=== PATIENT | female | born 1995 | race Caucasian/White ===

== ENCOUNTER 2019-04-10 19:55 | Inpatient (IN) | payer SELFPAY ==
[~2019-04-10] VITALS: Ht 180.3 cm; Wt 121.1 kg
[~2019-04-10 19:55] MED LIST: CLIN150C14 PO; ONDA4TAB10 PO; ONDA4TAB7 PO
[2019-04-10 20:25] LABS: BILIRUBIN,URINE NEGATIVE (NEG); CLARITY,URINE CLOUDY; COLOR,URINE YELLOW; NITRITE,URINE NEGATIVE (NEG); PH,URINE 6.5; PROTEIN,URINE NEGATIVE (NEG-TRACE); UROBILINOGEN,URINE 0.2 mg/dL (0.2 mg/dL)
[2019-04-10] MEDS ORDERED: fentaNYL PF VIAL 100 MCG/2 ML VIAL ONE (20:27)
[2019-04-10] MEDS ORDERED: ONDANSETRON PF 4 MG/2 ML VIAL. ONE (20:27)
[2019-04-10] MEDS ORDERED: IV NORMAL SALINE 1000ML BAG 1,000 ML IV ONE (20:30)
[2019-04-10] MEDS ORDERED: fentaNYL PF VIAL 100 MCG/2 ML VIAL IV ONE (20:30)
[2019-04-10] MEDS ORDERED: ONDANSETRON PF 4 MG/2 ML VIAL. IV ONE (20:30)
[2019-04-10 20:31] LABS: BASO # 0.1 x10^3/uL (0.0-0.2); BASO % 1 % (0-3); EOS # 0.2 x10^3/uL (0.0-0.7); EOS % 3 % (0-3); HEMATOCRIT 40.7 % (36.0-47.0); HEMOGLOBIN 13.7 g/dL (12.0-15.5); LYMPH % 22 % (24-48); MEAN CORPUSCULAR HEMOGLOBIN 30 pg (25-35); MEAN CORPUSCULAR HGB CONC 34 g/dL (31-37); MEAN CORPUSCULAR VOLUME 89 fL (79-100); MONO # 0.6 x10^3/uL (0.0-1.1); MONO % 7 % (0-9); NEUT # 6.3 x10^3/uL (1.8-7.7); NEUT % 69 % (31-73); PLATELET COUNT 238 x10^3/uL (140-400); RED CELL DISTRIBUTION WIDTH 13.9 % (11.5-14.5); WHITE BLOOD COUNT 9.1 x10^3/uL (4.0-11.0)
[2019-04-10 20:35] LABS: AMORPHOUS SEDIMENT,UR PRESENT /HPF; BACTERIA,URINE MODERATE /HPF (0-FEW); SQUAMOUS EPITHELIAL CELL,UR MOD /LPF; TRICHOMONAS,URINE PRESENT
--- NOTE | 2019-04-10 20:41 | PHYS DOC ---
Past Medical History Past Medical History: Anemia, Anxiety, Asthma, Depression, Hypertension, Seizure Past Surgical History: Other Additional Past Surgical Histo: MOUTH AND BACK, RIGHT KNEE Alcohol Use: None Drug Use: None Adult General Chief Complaint Chief Complaint: ABDOMINAL PAIN HPI HPI Patient is a 24 year old f p/w abdo pain ruq since six am fever 101 mom concerned about gb dull constant sharp worsened with time radiates to flank no prior surgeries hx of epilepsy not on any meds Review of Systems Review of Systems Constitutional: Eyes: Denies change in visual acuity, redness, or eye pain [] HENT: Denies nasal congestion or sore throat [] Respiratory: Denies cough or shortness of breath [] Cardiovascular: No additional information not addressed in HPI [] GI: Musculoskeletal: Denies back pain or joint pain [] Integument: Denies rash or skin lesions [] Neurologic: Denies headache, focal weakness or sensory changes [] All other systems were reviewed and found to be within normal limits, except as documented in this note. Current Medications Current Medications Current Medications Medications (Trade) Dose Ordered Sig/Karol Start Time Stop Time Status Last Admin Dose Admin Ciprofloxacin/ Dextrose 200 ml @ 200 mls/hr 1X ONCE 04/10/19 22:15 04/10/19 23:14 Fentanyl Citrate (Fentanyl 2ml Vial) 100 mcg STK-MED ONCE 04/10/19 20:27 04/10/19 20:28 DC Metronidazole 100 ml @ 100 mls/hr 1X ONCE 04/10/19 22:15 04/10/19 23:14 UNV Morphine Sulfate (Morphine Sulfate) 4 mg PRN Q2HR PRN 04/10/19 22:15 04/11/19 22:14 UNV Ondansetron HCl (Zofran) 4 mg PRN Q8HRS PRN 04/10/19 22:15 04/11/19 22:14 Sodium Chloride 1,000 ml @ 100 mls/hr Q10H 04/10/19 22:15 04/11/19 22:14 Allergies Allergies Allergies Coded Allergies Type Severity Reaction Last Updated Verified Penicillins Allergy Severe 04/10/19 Yes Physical Exam Physical Exam Constitutional: Well developed, well nourished, no acute distress, non-toxic appearance. [] HENT: Normocephalic, atraumatic, bilateral external ears normal, oropharynx moist, no oral exudates, nose normal. [] Eyes: PERRLA, EOMI, conjunctiva normal, no discharge. [] Neck: Normal range of motion, no tenderness, supple, no stridor. [] Cardiovascular:Heart rate regular rhythm, no murmur [] Lungs & Thorax: Bilateral breath sounds clear to auscultation [] Abdomen: Bowel sounds normal, soft, ruq tenderness, no masses, no pulsatile masses. [] Skin: Warm, dry, no erythema, no rash. [] Back: No tenderness, no CVA tenderness. [] Extremities: No tenderness, no cyanosis, no clubbing, ROM intact, no edema. [] Neurologic: Alert and oriented X 3, normal motor function, normal sensory function, no focal deficits noted. [] Psychologic: Affect normal, judgement normal, mood normal. [] Current Patient Data Vital Signs Vital Signs Date Time Temp Pulse Resp B/P (MAP) Pulse Ox O2 Delivery O2 Flow Rate FiO2 04/10/19 21:08 79 16 116/64 (81) 99 Room Air 04/10/19 20:00 97.7 97.7 Lab Values Laboratory Tests Test 04/10/19 20:00 04/10/19 20:11 04/10/19 20:22 Urine Collection Type Unknown Urine Color Yellow Urine Clarity Cloudy Urine pH 6.5 Urine Specific [place] 1.025 Urine Protein Negative mg/dL (NEG-TRACE) Urine Glucose (UA) Negative mg/dL (NEG) Urine Ketones (Stick) Negative mg/dL (NEG) Urine Blood Negative (NEG) Urine Nitrite Negative (NEG) Urine Bilirubin Negative (NEG) Urine Urobilinogen Dipstick 0.2 mg/dL (0.2 mg/dL) Urine Leukocyte Esterase Moderate (NEG) Urine RBC 1-2 /HPF (0-2) Urine WBC 5-10 /HPF (0-4) Urine Squamous Epithelial Cells Mod /LPF Urine Amorphous Sediment Present /HPF Urine Bacteria Moderate /HPF (0-FEW) Urine Trichomonas Present POC Urine HCG, Qualitative Hcg negative (Negative) White Blood Count 9.1 x10^3/uL (4.0-11.0) Red Blood Count 4.60 x10^6/uL (3.50-5.40) Hemoglobin 13.7 g/dL (12.0-15.5) Hematocrit 40.7 % (36.0-47.0) Mean Corpuscular Volume 89 fL (79-100) Mean Corpuscular Hemoglobin 30 pg (25-35) Mean Corpuscular Hemoglobin Concent 34 g/dL (31-37) Red Cell Distribution Width 13.9 % (11.5-14.5) Platelet Count 238 x10^3/uL (140-400) Neutrophils (%) (Auto) 69 % (31-73) Lymphocytes (%) (Auto) 22 % (24-48) L Monocytes (%) (Auto) 7 % (0-9) Eosinophils (%) (Auto) 3 % (0-3) Basophils (%) (Auto) 1 % (0-3) Neutrophils # (Auto) 6.3 x10^3/uL (1.8-7.7) Lymphocytes # (Auto) 2.0 x10^3/uL (1.0-4.8) Monocytes # (Auto) 0.6 x10^3/uL (0.0-1.1) Eosinophils # (Auto) 0.2 x10^3/uL (0.0-0.7) Basophils # (Auto) 0.1 x10^3/uL (0.0-0.2) Sodium Level 141 mmol/L (136-145) Potassium Level 4.0 mmol/L (3.5-5.1) Chloride Level 105 mmol/L (98-107) Carbon Dioxide Level 27 mmol/L (21-32) Anion Gap 9 (6-14) Blood Urea Nitrogen 16 mg/dL (7-20) Creatinine 0.9 mg/dL (0.6-1.0) Estimated GFR (Cockcroft-Gault) 78.3 BUN/Creatinine Ratio 18 (6-20) Glucose Level 141 mg/dL (70-99) H Calcium Level 9.3 mg/dL (8.5-10.1) Total Bilirubin 0.2 mg/dL (0.2-1.0) Aspartate Amino Transferase (AST) 12 U/L (15-37) L Alanine Aminotransferase (ALT) 14 U/L (14-59) Alkaline Phosphatase 75 U/L (46-116) Total Protein 7.8 g/dL (6.4-8.2) Albumin 3.9 g/dL (3.4-5.0) Albumin/Globulin Ratio 1.0 (1.0-1.7) Lipase 129 U/L (73-393) Laboratory Tests 04/10/19 20:22 Laboratory Tests 04/10/19 20:22 EKG EKG [] Radiology/Procedures Radiology/Procedures [] Impressions: MPRESSION: 1. Cholelithiasis. Examination is positive for ultrasonographic evidence of Butt's sign. The gallbladder wall thickness is upper limits of normal. Cholecystitis is not completely excluded but no evidence of pericholecystic fluid identified. Correlate clinically. 2. Hepatic steatosis with mild hepatomegaly. 2. The common bile duct measures 6 mm in diameter is upper limits of normal. . Correlate with lab values. Electronically signed by: Jonathan Lennon MD (04/10/2019 9:47 PM) [facility] Course & Med Decision Making Course & Med Decision Making Pertinent Labs and Imaging studies reviewed. (See chart for details) []SUSPECT EARLY CHOLECYSTITIS STILL HAVING PAIN AFTER FENTANYL BORDERLINE U/S CONSULT WTIH HARRY ADMIT FULBRIGHT CIPRO/FLAGYL (PT DESCRIBES SOB WITH PCN) THERE IS NO RLQ TTP AT ALL ON TWO EXAMS IN ED Dragon Disclaimer Dragon Disclaimer This electronic medical record was generated, in whole or in part, using a voice recognition dictation system. Departure Departure Impression: Primary Impression: Abdominal pain Disposition: ADMITTED INPATIENT Admitting Physician: ZACKERY Referrals: NO PCP (PCP) MARY ELLEN KNOX MD Apr 10, 2019 20:41
[2019-04-10 20:42] LABS: CALCIUM 9.3 mg/dL (8.5-10.1); CREATININE 0.9 mg/dL (0.6-1.0); GFR 78.3
[2019-04-10 20:47] LABS: ALBUMIN 3.9 g/dL (3.4-5.0); TOTAL BILIRUBIN 0.2 mg/dL (0.2-1.0); TOTAL PROTEIN 7.8 g/dL (6.4-8.2)
--- NOTE | 2019-04-10 21:50 | RAD ---
Examination: Ultrasound abdomen limited HISTORY: History of right upper quadrant pain, fever COMPARISON: 05/04/2015 FINDINGS: The pancreas is not well-visualized. The echogenicity liver grossly demonstrates mild increased echogenicity. The common bile duct measures 6 mm in diameter. The right lobe of the liver measures 18.3 cm. The right kidney measures 11.3 cm in length. Few echogenicities identified within the gallbladder likely cholelithiasis. Examination is positive for ultrasonographic evidence of Butt's sign. The gallbladder wall thickness measures 3 mm. The IVC is within normal limits of dimension. IMPRESSION: 1. Cholelithiasis. Examination is positive for ultrasonographic evidence of Butt's sign. The gallbladder wall thickness is upper limits of normal. Cholecystitis is not completely excluded but no evidence of pericholecystic fluid identified. Correlate clinically. 2. Hepatic steatosis with mild hepatomegaly. 2. The common bile duct measures 6 mm in diameter is upper limits of normal. . Correlate with lab values. Electronically signed by: Jonathan Lennon MD (04/10/2019 9:47 PM) [facility]
[2019-04-10] MEDS ORDERED: ONDANSETRON PF 4 MG/2 ML VIAL. IV PRN (22:15)
[2019-04-10] MEDS ORDERED: CIPROFLOXACIN 400MG PREMIX 200 ML IV ONE (22:15)
[2019-04-10] MEDS: MORPHINE SULFATE 4 MG/ML VIAL. IV PRN (23:05)
[2019-04-11] VITALS: BP 115/77
[2019-04-11] MEDS: IV NORMAL SALINE 1000ML BAG 1,000 ML IV SCH ×2 (00:42→08:15)
[2019-04-11] MEDS ORDERED: NICOTINE 21MG PATCH. TD SCH (01:30)
[2019-04-11 03:29] VITALS: BP 128/72
[2019-04-11 07:00] VITALS: BP 111/75
[2019-04-11] MEDS: MORPHINE SULFATE 4 MG/ML VIAL. IV PRN ×2 (07:34→13:02)
[2019-04-11] MEDS ORDERED: BUPIVACAINE MPF 0.5% 30 ML VIAL. ONE (07:46)
[2019-04-11] MEDS ORDERED: IOHEXOL 300 MG/ML 50 ML VIAL. ONE (07:46)
[2019-04-11] MEDS ORDERED: SURGICEL HEMOSTAT 4X8 EACH. ONE (07:46)
[2019-04-11] MEDS ORDERED: IV RINGERS,LACTATED 1000ML 1,000 ML IV SCH (07:50)
[2019-04-11] MEDS ORDERED: MORPHINE SULFATE 2 MG/ML VIAL. IV PRN (08:00)
[2019-04-11] MEDS ORDERED: HYDROmorphone 2 MG/ML VIAL IV PRN (08:00)
[2019-04-11] MEDS ORDERED: ONDANSETRON PF 4 MG/2 ML VIAL. IV PRN ×2 (08:00→13:00)
[2019-04-11] MEDS ORDERED: fentaNYL PF VIAL 100 MCG/2 ML VIAL IV PRN (08:00)
--- NOTE | 2019-04-11 08:19 | PDOC2 ---
CONSULT Date of Consult Date of Consult DATE: 04/11/19 TIME: 08:15 History of Present Illness Reason for Visit: The patient is a 24 year old female who reported to the ER with abdominal pain. The pain was initially in the mid abdomen but then worsened and localized to the RUQ and back. The pain began yesterday and was sharp and severe. She had associated nausea and reports a temperature of 101. She had a similar episode of this pain a few months back and was seen in [facility]. Her evaluation here is consistent with cholecystitis. Past Medical History Past Medical History seizures, ADD, depression, obesity Past Surgical History Past Surgical History dental surgery, D and C Social History 1 pack per day ALCOHOL: rare Current Problem List Problem List Problems Medical Problems: (1) Abdominal pain Status: Acute Current Medications Current Medications Current Medications Sodium Chloride 1,000 ml @ 1,000 mls/hr 1X ONCE IV Last administered on 04/10/19at 20:30; Start 04/10/19 at 20:30; Stop 04/10/19 at 21:29; Status DC Fentanyl Citrate (Fentanyl 2ml Vial) 50 mcg 1X ONCE IV Last administered on 04/10/19at 20:30; Start 04/10/19 at 20:30; Stop 04/10/19 at 20:31; Status DC Ondansetron HCl (Zofran) 4 mg 1X ONCE IV Last administered on 04/10/19at 20:30; Start 04/10/19 at 20:30; Stop 04/10/19 at 20:31; Status DC Ondansetron HCl (Zofran) 4 mg STK-MED ONCE .ROUTE ; Start 04/10/19 at 20:27; Stop 04/10/19 at 20:27; Status DC Fentanyl Citrate (Fentanyl 2ml Vial) 100 mcg STK-MED ONCE .ROUTE ; Start 04/10/19 at 20:27; Stop 04/10/19 at 20:28; Status DC Ondansetron HCl (Zofran) 4 mg PRN Q8HRS PRN IV NAUSEA/VOMITING Last administered on 04/11/19at 07:38; Start 04/10/19 at 22:15; Stop 04/11/19 at 22:14 Morphine Sulfate (Morphine Sulfate) 4 mg PRN Q2HR PRN IV PAIN Last administered on 04/11/19at 07:38; Start 04/10/19 at 22:15; Stop 04/11/19 at 22:14 Sodium Chloride 1,000 ml @ 100 mls/hr Q10H IV Last administered on 04/11/19at 00:42; Start 04/10/19 at 22:15; Stop 04/11/19 at 22:14 Ciprofloxacin/ Dextrose 200 ml @ 200 mls/hr 1X ONCE IV Last administered on 04/10/19at 23:50; Start 04/10/19 at 22:15; Stop 04/10/19 at 23:14; Status DC Metronidazole 100 ml @ 100 mls/hr 1X ONCE IV Last administered on 04/11/19at 00:42; Start 04/10/19 at 22:15; Stop 04/10/19 at 23:14; Status DC Nicotine (Nicoderm Cq 21mg) 1 patch DAILY TD Last administered on 04/11/19at 01:39; Start 04/11/19 at 01:30 Lorazepam (Ativan Inj) 1 mg PRN Q6HRS PRN IV ANXIETY / AGITATION Last administered on 04/11/19at 01:39; Start 04/11/19 at 01:30 Iohexol (Omnipaque 300 Mg/ml) 50 ml STK-MED ONCE .ROUTE ; Start 04/11/19 at 07:46; Stop 04/11/19 at 07:46; Status DC Cellulose (Surgicel Hemostat 4x8) 1 each STK-MED ONCE .ROUTE ; Start 04/11/19 at 07:46; Stop 04/11/19 at 07:46; Status DC Bupivacaine HCl (Sensorcaine Mpf 0.5%) 30 ml STK-MED ONCE .ROUTE ; Start 04/11/19 at 07:46; Stop 04/11/19 at 07:46; Status DC Ondansetron HCl (Zofran) 4 mg PRN Q6HRS PRN IV NAUSEA/VOMITING; Start 04/11/19 at 08:00; Stop 04/11/19 at 18:00 Fentanyl Citrate (Fentanyl 2ml Vial) 25 mcg PRN Q5MIN PRN IV MILD PAIN 1-3; Start 04/11/19 at 08:00; Stop 04/11/19 at 18:00 Fentanyl Citrate (Fentanyl 2ml Vial) 50 mcg PRN Q5MIN PRN IV MODERATE TO SEVERE PAIN; Start 04/11/19 at 08:00; Stop 04/11/19 at 18:00 Morphine Sulfate (Morphine Sulfate) 1 mg PRN Q10MIN PRN IV SEVERE PAIN 7-10; Start 04/11/19 at 08:00; Stop 04/11/19 at 18:00 Ringer's Solution 1,000 ml @ 30 mls/hr Q24H IV ; Start 04/11/19 at 07:50; Stop 04/11/19 at 19:49 Hydromorphone HCl (Dilaudid) 0.5 mg PRN Q10MIN PRN IV SEV PAIN, Second choice; Start 04/11/19 at 08:00; Stop 04/11/19 at 18:00 Prochlorperazine Edisylate (Compazine) 5 mg PACU PRN PRN IV NAUSEA, MRX1; Start 04/11/19 at 08:00; Stop 04/11/19 at 18:00 Active Scripts Active Zofran (Ondansetron Hcl) 4 Mg Tablet 1 Tab PO Q6HRS Zofran Odt (Ondansetron) 4 Mg Tab.rapdis 4 Mg PO Q8HRS PRN Clindamycin Hcl 150 Mg Capsule 300 Mg PO QID 10 Days Allergies Allergies: Coded Allergies: Penicillins (Verified Allergy, Severe, 04/10/19) difficulty breathing ROS General: YES: Other (fever) PSYCHOLOGICAL ROS: YES: Anxiety Eyes: No Blurry vision, No Decreased vision, No Double vision, No Dry eyes, No Excessive tearing, No Eye Pain, No Itchy Eyes, No Loss of vision, No Photophobia, No Scotomata, No Uses contacts, No Uses glasses, No Other HEENT: No: Heacaches, Visual Changes, Hearing change, Nasal congestion, Nasal discharge, Oral lesions, Sinus pain, Sore Throat, Epistaxis, Sneezing, Snoring, Tinnitus, Vertigo, Vocal changes, Other ALLERGY AND IMMUNOLOGY: No: Hives, Insect Bite Sensitivity, Itchy/Watery Eyes, Nasal Congestion, Post Nasal Drip, Seasonal Allergies, Other Hematological and Lymphatic: No: Bleeding Problems, Blood Clots, Blood Transfusions, Brusing, Night Sweats, Pallor, Swollen Lymph Nodes, Other ENDOCRINE: No: Breast Changes, Galactorrhea, Hair Pattern Changes, Hot Flashes, Malaise/lethargy, Mood Swings, Palpitations, Polydipsia/polyuria, Skin Changes, Temperature Intolerance, Unexpected Weight Changes, Other Respiratory: No: Cough, Hemoptysis, Orthopnea, Pleuritic Pain, Shortness of breath, SOB with excertion, Sputum Changes, Stridor, Tachypnea, Wheezing, Other Cardiovascular: No Chest Pain, No Palpitations, No Orthopnea, No Paroxysmal Noc. Dyspnea, No Edema, No Lt Headedness, No Other Gastrointestinal: Yes Nausea, Yes Abdominal Pain Genitourinary: No Dysuria, No Frequency, No Incontinence, No Hematuria, No Retention, No Discharge, No Urgency, No Pain, No Flank Pain, No Other, No , No , No , No , No , No , No Musculoskeletal: No Gait Disturbance, No Joint Pain, No Joint Stiffness, No Joint Swelling, No Muscle Pain, No Muscular Weakness, No Pain In:, No Swelling In:, No Other Neurological: No Behavorial Changes, No Bowel/Bladder ControlChng, No Confusion, No Dizziness, No Gait Disturbance, No Headaches, No Impaired Coord/balance, No Memory Loss, No Numbness/Tingling, No Seizures, No Speech Problems, No Tremors, No Visual Changes, No Weakness, No Other Skin: No Dry Skin, No Eczema, No Hair Changes, No Lumps, No Mole Changes, No Mottling, No Nail Changes, No Pruritus, No Rash, No Skin Lesion Changes, No Other, No Acne Physical Exam General: Alert, Oriented X3, Cooperative HEENT: Atraumatic Lungs: Clear to auscultation Abdomen: Soft (obese, tender with palpation in RUQ) Extremities: No clubbing, No cyanosis Skin: No rashes, No breakdown Neuro: Normal speech Psych/Mental Status: Mental status NL Vitals VITALS Vital Signs Date Time Temp Pulse Resp B/P (MAP) Pulse Ox O2 Delivery O2 Flow Rate FiO2 04/11/19 07:38 Room Air 04/11/19 03:29 98.3 72 20 128/72 (90) 99 98.3 Labs Labs Laboratory Tests Test 04/10/19 20:00 04/10/19 20:11 04/10/19 20:22 Urine Collection Type Unknown Urine Color Yellow Urine Clarity Cloudy Urine pH 6.5 Urine Specific [place] 1.025 Urine Protein Negative mg/dL (NEG-TRACE) Urine Glucose (UA) Negative mg/dL (NEG) Urine Ketones (Stick) Negative mg/dL (NEG) Urine Blood Negative (NEG) Urine Nitrite Negative (NEG) Urine Bilirubin Negative (NEG) Urine Urobilinogen Dipstick 0.2 mg/dL (0.2 mg/dL) Urine Leukocyte Esterase Moderate (NEG) Urine RBC 1-2 /HPF (0-2) Urine WBC 5-10 /HPF (0-4) Urine Squamous Epithelial Cells Mod /LPF Urine Amorphous Sediment Present /HPF Urine Bacteria Moderate /HPF (0-FEW) Urine Trichomonas Present Bedside Urine HCG, Qualitative Hcg negative (Negative) White Blood Count 9.1 x10^3/uL (4.0-11.0) Red Blood Count 4.60 x10^6/uL (3.50-5.40) Hemoglobin 13.7 g/dL (12.0-15.5) Hematocrit 40.7 % (36.0-47.0) Mean Corpuscular Volume 89 fL (79-100) Mean Corpuscular Hemoglobin 30 pg (25-35) Mean Corpuscular Hemoglobin Concent 34 g/dL (31-37) Red Cell Distribution Width 13.9 % (11.5-14.5) Platelet Count 238 x10^3/uL (140-400) Neutrophils (%) (Auto) 69 % (31-73) Lymphocytes (%) (Auto) 22 % (24-48) Monocytes (%) (Auto) 7 % (0-9) Eosinophils (%) (Auto) 3 % (0-3) Basophils (%) (Auto) 1 % (0-3) Neutrophils # (Auto) 6.3 x10^3/uL (1.8-7.7) Lymphocytes # (Auto) 2.0 x10^3/uL (1.0-4.8) Monocytes # (Auto) 0.6 x10^3/uL (0.0-1.1) Eosinophils # (Auto) 0.2 x10^3/uL (0.0-0.7) Basophils # (Auto) 0.1 x10^3/uL (0.0-0.2) Sodium Level 141 mmol/L (136-145) Potassium Level 4.0 mmol/L (3.5-5.1) Chloride Level 105 mmol/L (98-107) Carbon Dioxide Level 27 mmol/L (21-32) Anion Gap 9 (6-14) Blood Urea Nitrogen 16 mg/dL (7-20) Creatinine 0.9 mg/dL (0.6-1.0) Estimated GFR (Cockcroft-Gault) 78.3 BUN/Creatinine Ratio 18 (6-20) Glucose Level 141 mg/dL (70-99) Calcium Level 9.3 mg/dL (8.5-10.1) Total Bilirubin 0.2 mg/dL (0.2-1.0) Aspartate Amino Transf (AST/SGOT) 12 U/L (15-37) Alanine Aminotransferase (ALT/SGPT) 14 U/L (14-59) Alkaline Phosphatase 75 U/L (46-116) Total Protein 7.8 g/dL (6.4-8.2) Albumin 3.9 g/dL (3.4-5.0) Albumin/Globulin Ratio 1.0 (1.0-1.7) Lipase 129 U/L (73-393) Laboratory Tests Test 04/10/19 20:00 04/10/19 20:11 04/10/19 20:22 Urine Collection Type Unknown Urine Color Yellow Urine Clarity Cloudy Urine pH 6.5 Urine Specific [place] 1.025 Urine Protein Negative mg/dL (NEG-TRACE) Urine Glucose (UA) Negative mg/dL (NEG) Urine Ketones (Stick) Negative mg/dL (NEG) Urine Blood Negative (NEG) Urine Nitrite Negative (NEG) Urine Bilirubin Negative (NEG) Urine Urobilinogen Dipstick 0.2 mg/dL (0.2 mg/dL) Urine Leukocyte Esterase Moderate (NEG) Urine RBC 1-2 /HPF (0-2) Urine WBC 5-10 /HPF (0-4) Urine Squamous Epithelial Cells Mod /LPF Urine Amorphous Sediment Present /HPF Urine Bacteria Moderate /HPF (0-FEW) Urine Trichomonas Present Bedside Urine HCG, Qualitative Hcg negative (Negative) White Blood Count 9.1 x10^3/uL (4.0-11.0) Red Blood Count 4.60 x10^6/uL (3.50-5.40) Hemoglobin 13.7 g/dL (12.0-15.5) Hematocrit 40.7 % (36.0-47.0) Mean Corpuscular Volume 89 fL (79-100) Mean Corpuscular Hemoglobin 30 pg (25-35) Mean Corpuscular Hemoglobin Concent 34 g/dL (31-37) Red Cell Distribution Width 13.9 % (11.5-14.5) Platelet Count 238 x10^3/uL (140-400) Neutrophils (%) (Auto) 69 % (31-73) Lymphocytes (%) (Auto) 22 % (24-48) Monocytes (%) (Auto) 7 % (0-9) Eosinophils (%) (Auto) 3 % (0-3) Basophils (%) (Auto) 1 % (0-3) Neutrophils # (Auto) 6.3 x10^3/uL (1.8-7.7) Lymphocytes # (Auto) 2.0 x10^3/uL (1.0-4.8) Monocytes # (Auto) 0.6 x10^3/uL (0.0-1.1) Eosinophils # (Auto) 0.2 x10^3/uL (0.0-0.7) Basophils # (Auto) 0.1 x10^3/uL (0.0-0.2) Sodium Level 141 mmol/L (136-145) Potassium Level 4.0 mmol/L (3.5-5.1) Chloride Level 105 mmol/L (98-107) Carbon Dioxide Level 27 mmol/L (21-32) Anion Gap 9 (6-14) Blood Urea Nitrogen 16 mg/dL (7-20) Creatinine 0.9 mg/dL (0.6-1.0) Estimated GFR (Cockcroft-Gault) 78.3 BUN/Creatinine Ratio 18 (6-20) Glucose Level 141 mg/dL (70-99) Calcium Level 9.3 mg/dL (8.5-10.1) Total Bilirubin 0.2 mg/dL (0.2-1.0) Aspartate Amino Transf (AST/SGOT) 12 U/L (15-37) Alanine Aminotransferase (ALT/SGPT) 14 U/L (14-59) Alkaline Phosphatase 75 U/L (46-116) Total Protein 7.8 g/dL (6.4-8.2) Albumin 3.9 g/dL (3.4-5.0) Albumin/Globulin Ratio 1.0 (1.0-1.7) Lipase 129 U/L (73-393) Assessment/Plan Assessment/Plan RUQ pain, suspect calculous cholecystitis. Recommend lap sj, the details and risks of surgery were discussed. She understands and would like to proceed. EDUARDA HARRY MD Apr 11, 2019 08:19
[2019-04-11] MEDS ORDERED: LIDOCAINE 2% PF 5 ML VIAL. ONE (09:06)
[2019-04-11] MEDS ORDERED: DEXAMETHASONE SOD PHOS 4 MG/ML VIAL ONE (09:06)
[2019-04-11] MEDS ORDERED: fentaNYL PF VIAL 250 MCG/5 ML VIAL ONE (09:06)
[2019-04-11] MEDS ORDERED: ONDANSETRON PF 4 MG/2 ML VIAL. ONE (09:06)
[2019-04-11] MEDS ORDERED: ROCURONIUM 50 MG/5 ML VIAL. ONE (09:06)
[2019-04-11] MEDS ORDERED: PROPOFOL 20 ML IV ONE (09:06)
--- NOTE | 2019-04-11 09:10 | NUR ---
Pt. down to OR via bed.
[2019-04-11] MEDS ORDERED: KETOROLAC 30 MG/ML INJ FOR OR. INJ ONE (10:50)
[2019-04-11] MEDS ORDERED: GLYCOPYRROLATE 1 MG/5 ML VIAL. ONE (10:53)
[2019-04-11] MEDS ORDERED: NEOSTIGMINE METHYLSULFATE 5 MG/5 ML SYRINGE. ONE (10:54)
--- NOTE | 2019-04-11 10:58 | PDOC4 ---
Operative Note Operative Note Operative Note: Preoperative Diagnosis: Calculus cholecystitis Postoperative Diagnosis: Same Procedure: Laparoscopic cholecystectomy with intraoperative cholangiogram Surgeons: Markei CASTANO Anesthesia: Gen. Estimated Blood Loss: 10 mL Specimen: Gallbladder to pathology Drains: None Complications: None Indications: The patient is a 24-year-old female who reported to the hospital due to severe right upper quadrant pain. Her evaluation is consistent with calculus cholecystitis. Surgical treatment was offered by means of a laparoscopic cholecystectomy. The risks of surgery were discussed which include bleeding, infection, bile duct injury, bile leak, pain, the potential for additional surgeries or procedures. The patient understands and would like to proceed. Description: The patient was taken to the operating room and laid supine on the operating table. General anesthesia was performed. The abdomen was prepped with ChloraPrep and draped in a standard surgical fashion. A small infraumbilical incision was made with a scalpel. The Veress needle was then inserted and a pneumoperitoneum was then created. A 5 mm trocar was then inserted and the laparoscope was introduced. In the upper midabdomen a 5 mm trocar was inserted and in the right upper quadrant two 2.3 mm mini lap graspers were inserted. The gallbladder was retracted cephalad. The cystic duct was dissected free from surrounding tissues. One clip was placed on the duct near the gallbladder junction. An opening was made in the duct and a cholangiocatheter placed within and secured with a clip. Using contrast dye and fluoroscopy an intraoperative cholangiogram was performed that appeared unremarkable. The clip and catheter were then withdrawn. Three clips were placed on the cystic duct and it was divided. The cystic artery was then identified, dissected free, doubly clipped and divided as well. The gallbladder was then mobilized away from the liver with cautery. The superior 5 millimeter trocar was exchanged for an 11 millimeter trocar. The gallbladder was then placed in an endoscopic bag and extracted at the superior trocar site. The fascia there was closed with an 0 Vicryl suture. All blood and irrigation fluid was suctioned and hemostasis was good. The remaining ports were removed and the pneumoperitoneum was relieved. The skin incisions were injected with half percent Marcaine with epinephrine, and all were closed using 4-0 Monocryl suture. Steri-Strips and dressings were then applied. The patient tolerated the procedure well and was sent to the recovery room in stable condition. At the end of the case all counts were correct. EDUARDA HARRY MD Apr 11, 2019 10:58
[2019-04-11] MEDS ORDERED: oxyCODONE/APAP 5/325 1 TAB TABLET PO PRN ×2 (11:00→11:15)
--- NOTE | 2019-04-11 11:05 | RAD ---
Examination: Operative cholangiogram History: Post cholecystectomy. Fluoroscopic time was not given. Procedure: Fluoroscopic images were provided during the procedure. The cystic duct has been catheterized and contrast has been injected. Findings: The common hepatic bile duct and common bile duct are patent without evidence of intraluminal filling defect or obstruction. Contrast empties normally into the duodenum. Impression: Normal operative cholangiogram. Electronically signed by: Jonathan Lennon MD (04/11/2019 11:02 AM) [facility]
[2019-04-11] MEDS ORDERED: SEVOFLURANE 61 TO 120 MINUTES. IH ONE (11:14)
--- NOTE | 2019-04-11 11:16 | PDOC1 ---
History and Physical Date of Admission Date of Admission DATE: 04/11/19 TIME: 11:12 Identification/Chief Complaint Chief Complaint Patient is a 24 year old f p/w abd pain seen in er ruq since six am 04/10 had fever 101 History of Present Illness History of Present Illness Operative Note Operative Note Operative Note Operative Note: Preoperative Diagnosis: Calculus cholecystitis Postoperative Diagnosis: Same Procedure: Laparoscopic cholecystectomy with intraoperative cholangiogram Surgeons: Markie CASTANO Anesthesia: Gen. Estimated Blood Loss: 10 mL Specimen: Gallbladder to pathology Drains: None Complications: None Past Medical History Past Medical History Past Medical History Past Medical History: Anemia, Anxiety, Asthma, Depression, Hypertension, Seizure Past Surgical History: Other Additional Past Surgical Histo: MOUTH AND BACK, RIGHT KNEE Alcohol Use: None Drug Use: None FAMILY HX OBESITY Family History Family History: High Cholestrol Social History Smoke: 1 pack per day ALCOHOL: social Drugs: None Current Problem List Problem List Problems Medical Problems: (1) Abdominal pain Status: Acute Current Medications Current Medications Current Medications Sodium Chloride 1,000 ml @ 1,000 mls/hr 1X ONCE IV Last administered on 04/10/19at 20:30; Start 04/10/19 at 20:30; Stop 04/10/19 at 21:29; Status DC Fentanyl Citrate (Fentanyl 2ml Vial) 50 mcg 1X ONCE IV Last administered on 04/10/19at 20:30; Start 04/10/19 at 20:30; Stop 04/10/19 at 20:31; Status DC Ondansetron HCl (Zofran) 4 mg 1X ONCE IV Last administered on 04/10/19at 20:30; Start 04/10/19 at 20:30; Stop 04/10/19 at 20:31; Status DC Ondansetron HCl (Zofran) 4 mg STK-MED ONCE .ROUTE ; Start 04/10/19 at 20:27; Stop 04/10/19 at 20:27; Status DC Fentanyl Citrate (Fentanyl 2ml Vial) 100 mcg STK-MED ONCE .ROUTE ; Start 04/10/19 at 20:27; Stop 04/10/19 at 20:28; Status DC Ondansetron HCl (Zofran) 4 mg PRN Q8HRS PRN IV NAUSEA/VOMITING Last administered on 04/11/19at 07:38; Start 04/10/19 at 22:15; Stop 04/11/19 at 22:14 Morphine Sulfate (Morphine Sulfate) 4 mg PRN Q2HR PRN IV PAIN Last administered on 04/11/19 07:38; Start 04/10/19 at 22:15; Stop 04/11/19 at 22:14 Sodium Chloride 1,000 ml @ 100 mls/hr Q10H IV Last administered on 04/11/19 00:42; Start 04/10/19 at 22:15; Stop 04/11/19 at 22:14 Ciprofloxacin/ Dextrose 200 ml @ 200 mls/hr 1X ONCE IV Last administered on 04/10/19 23:50; Start 04/10/19 at 22:15; Stop 04/10/19 at 23:14; Status DC Metronidazole 100 ml @ 100 mls/hr 1X ONCE IV Last administered on 04/11/19 00:42; Start 04/10/19 at 22:15; Stop 04/10/19 at 23:14; Status DC Nicotine (Nicoderm Cq 21mg) 1 patch DAILY TD Last administered on 04/11/19 01:39; Start 04/11/19 at 01:30 Lorazepam (Ativan Inj) 1 mg PRN Q6HRS PRN IV ANXIETY / AGITATION Last administered on 04/11/19 01:39; Start 04/11/19 at 01:30 Iohexol (Omnipaque 300 Mg/ml) 50 ml STK-MED ONCE .ROUTE Last administered on 04/11/19 10:36; Start 04/11/19 at 07:46; Stop 04/11/19 at 07:46; Status DC Cellulose (Surgicel Hemostat 4x8) 1 each STK-MED ONCE .ROUTE ; Start 04/11/19 at 07:46; Stop 04/11/19 at 07:46; Status DC Bupivacaine HCl (Sensorcaine Mpf 0.5%) 30 ml STK-MED ONCE .ROUTE Last administered on 04/11/19 10:36; Start 04/11/19 at 07:46; Stop 04/11/19 at 07:46; Status DC Ondansetron HCl (Zofran) 4 mg PRN Q6HRS PRN IV NAUSEA/VOMITING; Start 04/11/19 at 08:00; Stop 04/11/19 at 18:00 Fentanyl Citrate (Fentanyl 2ml Vial) 25 mcg PRN Q5MIN PRN IV MILD PAIN 1-3; Start 04/11/19 at 08:00; Stop 04/11/19 at 18:00 Fentanyl Citrate (Fentanyl 2ml Vial) 50 mcg PRN Q5MIN PRN IV MODERATE TO SEVERE PAIN; Start 04/11/19 at 08:00; Stop 04/11/19 at 18:00 Morphine Sulfate (Morphine Sulfate) 1 mg PRN Q10MIN PRN IV SEVERE PAIN 7-10; Start 04/11/19 at 08:00; Stop 04/11/19 at 18:00 Ringer's Solution 1,000 ml @ 30 mls/hr Q24H IV Last administered on 04/11/19at 10:06; Start 04/11/19 at 07:50; Stop 04/11/19 at 19:49 Hydromorphone HCl (Dilaudid) 0.5 mg PRN Q10MIN PRN IV SEV PAIN, Second choice; Start 04/11/19 at 08:00; Stop 04/11/19 at 18:00 Prochlorperazine Edisylate (Compazine) 5 mg PACU PRN PRN IV NAUSEA, MRX1; Start 04/11/19 at 08:00; Stop 04/11/19 at 18:00 Cefazolin Sodium/ Dextrose 50 ml @ 100 mls/hr 1X ONCE IV ; Start 04/11/19 at 09:00; Stop 04/11/19 at 09:29; Status UNV Fentanyl Citrate (Fentanyl 5ml Vial) 250 mcg STK-MED ONCE .ROUTE ; Start 04/11/19 at 09:06; Stop 04/11/19 at 09:06; Status DC Rocuronium Sarah Ann (Zemuron) 50 mg STK-MED ONCE .ROUTE ; Start 04/11/19 at 09:06; Stop 04/11/19 at 09:06; Status DC Propofol 20 ml @ As Directed STK-MED ONCE IV ; Start 04/11/19 at 09:06; Stop 04/11/19 at 09:06; Status DC Lidocaine HCl (Lidocaine Pf 2% Vial) 5 ml STK-MED ONCE .ROUTE ; Start 04/11/19 at 09:06; Stop 04/11/19 at 09:06; Status DC Ondansetron HCl (Zofran) 4 mg STK-MED ONCE .ROUTE ; Start 04/11/19 at 09:06; Stop 04/11/19 at 09:06; Status DC Dexamethasone Sodium Phosphate (Decadron) 4 mg STK-MED ONCE .ROUTE ; Start 04/11/19 at 09:06; Stop 04/11/19 at 09:06; Status DC Levofloxacin/ Dextrose 100 ml @ 100 mls/hr 1X ONCE IV Last administered on 04/11/19at 10:34; Start 04/11/19 at 09:15; Stop 04/11/19 at 10:14; Status DC Ketorolac Tromethamine (Toradol For Or Only) 30 mg STK-MED ONCE INJ ; Start 04/11/19 at 10:50; Stop 04/11/19 at 10:50; Status DC Glycopyrrolate (Robinul) 1 mg STK-MED ONCE .ROUTE ; Start 04/11/19 at 10:53; Stop 04/11/19 at 10:53; Status DC Neostigmine Methylsulfate (Neostigmine Methylsulfate) 5 mg STK-MED ONCE .ROUTE ; Start 04/11/19 at 10:54; Stop 04/11/19 at 10:54; Status DC Oxycodone/ Acetaminophen (Percocet 5/325) 1 tab PRN Q4HRS PRN PO PAIN; Start 04/11/19 at 11:00 Oxycodone/ Acetaminophen (Percocet 5/325) 2 tab PRN Q4HRS PRN PO PAIN; Start 04/11/19 at 11:15 Active Scripts Active Zofran (Ondansetron Hcl) 4 Mg Tablet 1 Tab PO Q6HRS Zofran Odt (Ondansetron) 4 Mg Tab.rapdis 4 Mg PO Q8HRS PRN Clindamycin Hcl 150 Mg Capsule 300 Mg PO QID 10 Days Allergies Allergies: Coded Allergies: Penicillins (Verified Allergy, Severe, 04/10/19) difficulty breathing ROS Review of System Review of Systems Review of Systems Constitutional: Eyes: Denies change in visual acuity, redness, or eye pain [] HENT: Denies nasal congestion or sore throat [] Respiratory: Denies cough or shortness of breath [] Cardiovascular: No additional information not addressed in HPI [] GI: Musculoskeletal: Denies back pain or joint pain [] Integument: Denies rash or skin lesions [] Neurologic: Denies headache, focal weakness or sensory changes [] 14 pt systems were reviewed and found to be within normal limits, except as documented Gastrointestinal: Yes Abdominal Pain Genitourinary: No Dysuria, No Frequency, No Incontinence, No Hematuria, No Retention, No Discharge, No Urgency, No Pain, No Flank Pain, No Other, No , No , No , No , No , No , No Musculoskeletal: No Gait Disturbance, No Joint Pain, No Joint Stiffness, No Joint Swelling, No Muscle Pain, No Muscular Weakness, No Pain In:, No Swelling In:, No Other Neurological: No Behavorial Changes, No Bowel/Bladder ControlChng, No Confusion, No Dizziness, No Gait Disturbance, No Headaches, No Impaired Coord/balance, No Memory Loss, No Numbness/Tingling, No Seizures, No Speech Problems, No Tremors, No Visual Changes, No Weakness, No Other Physical Exam Physical Exam Physical Exam Physical Exam Constitutional: Well developed, well nourished, no acute distress, non-toxic appearance. [] HENT: Normocephalic, atraumatic, bilateral external ears normal, oropharynx moist, no oral exudates, nose normal. [] Eyes: PERRLA, EOMI, conjunctiva normal, no discharge. [] Neck: Normal range of motion, no tenderness, supple, no stridor. [] Cardiovascular:Heart rate regular rhythm, no murmur [] Lungs & Thorax: Bilateral breath sounds clear to auscultation [] Abdomen: Bowel sounds normal, soft, ruq tenderness, no masses, no pulsatile masses. [] Skin: Warm, dry, no erythema, no rash. [] Back: No tenderness, no CVA tenderness. [] Extremities: No tenderness, no cyanosis, no clubbing, ROM intact, no edema. [] Neurologic: Alert and oriented X 3, normal motor function, normal sensory function, no focal deficits noted. [] Psychologic: Affect normal, judgement normal, mood normal. [] General: Alert, Oriented X3, Cooperative, mild distress HEENT: EOMI, Mucous membr. moist/pink Breasts: Not examined Rectal Exam: not examined PELVIC: Examination not indicated Extremities: No clubbing, No cyanosis, No edema Skin: No breakdown Neuro: Normal speech, Strength at 5/5 X4 ext, Cranial nerves 3-12 NL Psych/Mental Status: Mental status NL Vitals Vitals Vital Signs Date Time Temp Pulse Resp B/P (MAP) Pulse Ox O2 Delivery O2 Flow Rate FiO2 04/11/19 09:20 97.4 66 20 127/79 97 Room Air 97.4 Labs Labs Laboratory Tests Test 04/10/19 20:00 04/10/19 20:11 04/10/19 20:22 Urine Collection Type Unknown Urine Color Yellow Urine Clarity Cloudy Urine pH 6.5 Urine Specific Nixon 1.025 Urine Protein Negative mg/dL (NEG-TRACE) Urine Glucose (UA) Negative mg/dL (NEG) Urine Ketones (Stick) Negative mg/dL (NEG) Urine Blood Negative (NEG) Urine Nitrite Negative (NEG) Urine Bilirubin Negative (NEG) Urine Urobilinogen Dipstick 0.2 mg/dL (0.2 mg/dL) Urine Leukocyte Esterase Moderate (NEG) Urine RBC 1-2 /HPF (0-2) Urine WBC 5-10 /HPF (0-4) Urine Squamous Epithelial Cells Mod /LPF Urine Amorphous Sediment Present /HPF Urine Bacteria Moderate /HPF (0-FEW) Urine Trichomonas Present Bedside Urine HCG, Qualitative Hcg negative (Negative) White Blood Count 9.1 x10^3/uL (4.0-11.0) Red Blood Count 4.60 x10^6/uL (3.50-5.40) Hemoglobin 13.7 g/dL (12.0-15.5) Hematocrit 40.7 % (36.0-47.0) Mean Corpuscular Volume 89 fL (79-100) Mean Corpuscular Hemoglobin 30 pg (25-35) Mean Corpuscular Hemoglobin Concent 34 g/dL (31-37) Red Cell Distribution Width 13.9 % (11.5-14.5) Platelet Count 238 x10^3/uL (140-400) Neutrophils (%) (Auto) 69 % (31-73) Lymphocytes (%) (Auto) 22 % (24-48) Monocytes (%) (Auto) 7 % (0-9) Eosinophils (%) (Auto) 3 % (0-3) Basophils (%) (Auto) 1 % (0-3) Neutrophils # (Auto) 6.3 x10^3/uL (1.8-7.7) Lymphocytes # (Auto) 2.0 x10^3/uL (1.0-4.8) Monocytes # (Auto) 0.6 x10^3/uL (0.0-1.1) Eosinophils # (Auto) 0.2 x10^3/uL (0.0-0.7) Basophils # (Auto) 0.1 x10^3/uL (0.0-0.2) Sodium Level 141 mmol/L (136-145) Potassium Level 4.0 mmol/L (3.5-5.1) Chloride Level 105 mmol/L (98-107) Carbon Dioxide Level 27 mmol/L (21-32) Anion Gap 9 (6-14) Blood Urea Nitrogen 16 mg/dL (7-20) Creatinine 0.9 mg/dL (0.6-1.0) Estimated GFR (Cockcroft-Gault) 78.3 BUN/Creatinine Ratio 18 (6-20) Glucose Level 141 mg/dL (70-99) Calcium Level 9.3 mg/dL (8.5-10.1) Total Bilirubin 0.2 mg/dL (0.2-1.0) Aspartate Amino Transf (AST/SGOT) 12 U/L (15-37) Alanine Aminotransferase (ALT/SGPT) 14 U/L (14-59) Alkaline Phosphatase 75 U/L (46-116) Total Protein 7.8 g/dL (6.4-8.2) Albumin 3.9 g/dL (3.4-5.0) Albumin/Globulin Ratio 1.0 (1.0-1.7) Lipase 129 U/L (73-393) Laboratory Tests Test 04/10/19 20:00 04/10/19 20:11 04/10/19 20:22 Urine Collection Type Unknown Urine Color Yellow Urine Clarity Cloudy Urine pH 6.5 Urine Specific Nixon 1.025 Urine Protein Negative mg/dL (NEG-TRACE) Urine Glucose (UA) Negative mg/dL (NEG) Urine Ketones (Stick) Negative mg/dL (NEG) Urine Blood Negative (NEG) Urine Nitrite Negative (NEG) Urine Bilirubin Negative (NEG) Urine Urobilinogen Dipstick 0.2 mg/dL (0.2 mg/dL) Urine Leukocyte Esterase Moderate (NEG) Urine RBC 1-2 /HPF (0-2) Urine WBC 5-10 /HPF (0-4) Urine Squamous Epithelial Cells Mod /LPF Urine Amorphous Sediment Present /HPF Urine Bacteria Moderate /HPF (0-FEW) Urine Trichomonas Present Bedside Urine HCG, Qualitative Hcg negative (Negative) White Blood Count 9.1 x10^3/uL (4.0-11.0) Red Blood Count 4.60 x10^6/uL (3.50-5.40) Hemoglobin 13.7 g/dL (12.0-15.5) Hematocrit 40.7 % (36.0-47.0) Mean Corpuscular Volume 89 fL (79-100) Mean Corpuscular Hemoglobin 30 pg (25-35) Mean Corpuscular Hemoglobin Concent 34 g/dL (31-37) Red Cell Distribution Width 13.9 % (11.5-14.5) Platelet Count 238 x10^3/uL (140-400) Neutrophils (%) (Auto) 69 % (31-73) Lymphocytes (%) (Auto) 22 % (24-48) Monocytes (%) (Auto) 7 % (0-9) Eosinophils (%) (Auto) 3 % (0-3) Basophils (%) (Auto) 1 % (0-3) Neutrophils # (Auto) 6.3 x10^3/uL (1.8-7.7) Lymphocytes # (Auto) 2.0 x10^3/uL (1.0-4.8) Monocytes # (Auto) 0.6 x10^3/uL (0.0-1.1) Eosinophils # (Auto) 0.2 x10^3/uL (0.0-0.7) Basophils # (Auto) 0.1 x10^3/uL (0.0-0.2) Sodium Level 141 mmol/L (136-145) Potassium Level 4.0 mmol/L (3.5-5.1) Chloride Level 105 mmol/L (98-107) Carbon Dioxide Level 27 mmol/L (21-32) Anion Gap 9 (6-14) Blood Urea Nitrogen 16 mg/dL (7-20) Creatinine 0.9 mg/dL (0.6-1.0) Estimated GFR (Cockcroft-Gault) 78.3 BUN/Creatinine Ratio 18 (6-20) Glucose Level 141 mg/dL (70-99) Calcium Level 9.3 mg/dL (8.5-10.1) Total Bilirubin 0.2 mg/dL (0.2-1.0) Aspartate Amino Transf (AST/SGOT) 12 U/L (15-37) Alanine Aminotransferase (ALT/SGPT) 14 U/L (14-59) Alkaline Phosphatase 75 U/L (46-116) Total Protein 7.8 g/dL (6.4-8.2) Albumin 3.9 g/dL (3.4-5.0) Albumin/Globulin Ratio 1.0 (1.0-1.7) Lipase 129 U/L (73-393) Images Images Examination: Ultrasound abdomen limited HISTORY: History of right upper quadrant pain, fever COMPARISON: 05/04/2015 FINDINGS: The pancreas is not well-visualized. The echogenicity liver grossly demonstrates mild increased echogenicity. The common bile duct measures 6 mm in diameter. The right lobe of the liver measures 18.3 cm. The right kidney measures 11.3 cm in length. Few echogenicities identified within the gallbladder likely cholelithiasis. Examination is positive for ultrasonographic evidence of Butt's sign. The gallbladder wall thickness measures 3 mm. The IVC is within normal limits of dimension. IMPRESSION: 1. Cholelithiasis. Examination is positive for ultrasonographic evidence of Butt's sign. The gallbladder wall thickness is upper limits of normal. Cholecystitis is not completely excluded but no evidence of pericholecystic fluid identified. Correlate clinically. 2. Hepatic steatosis with mild hepatomegaly. 2. The common bile duct measures 6 mm in diameter is upper limits of normal. . Correlate with lab values. Electronically signed by: Jonathan Lennon MD (04/10/2019 9:47 PM) [facility] VTE Prophylaxis Ordered VTE Prophylaxis Devices: Yes VTE Pharmacological Prophylaxi: Yes Assessment/Plan Assessment/Plan IMPRESSION: 1. Cholelithiasis. Examination is positive FOR Butt's sign. The gallbladder wall thickness is upper limits of normal. acute Cholecystitis is LIKELY pericholecystic fluid identified. 2. Hepatic steatosis with mild hepatomegaly. 3. The common bile duct measures 6 mm in diameter is upper limits of normal. 4. morbid obesity 5. possible uti PLAN ADMIT Surgery consult npo dvt prophylaxis gi prophylaxis iv cipro 400mg q 12 hrs iv fluid support urine culture 57 min pt exam, chart review, > 50% of time spent with exam, chart review, pt care coordination Past Medical History Past Medical History: Anemia, Anxiety, Asthma, Depression, Hypertension, Seizure Past Surgical History: Other Additional Past Surgical Histo: MOUTH AND BACK, RIGHT KNEE Alcohol Use: None Drug Use: None HAL RUDD MD Apr 11, 2019 11:16
[2019-04-11] MEDS: PROCHLORPERAZINE 10 MG/2 ML VIAL. IV PRN ×2 (11:19→11:31)
[2019-04-11] MEDS: fentaNYL PF VIAL 100 MCG/2 ML VIAL IV PRN ×2 (11:20→11:29)
[2019-04-11 13:00] VITALS: BP 108/56
[2019-04-11] MEDS ORDERED: ENOXAPARIN 40 MG/0.4 ML SYRINGE. SQ SCH ×2 (13:00→21:00)
[2019-04-11] MEDS ORDERED: cloNIDine HCL 0.1 MG TABLET PO PRN (13:00)
[2019-04-11] MEDS ORDERED: ACETAMINOPHEN 325 MG TABLET. PO PRN (13:00)
[2019-04-11] MEDS ORDERED: LORazepam 0.5 MG TABLET PO PRN (13:00)
[2019-04-11] MEDS ORDERED: guaiFENesin ORAL 200 MG/10 ML LIQUID. PO PRN (13:00)
[2019-04-11] MEDS ORDERED: CIPROFLOXACIN 400MG PREMIX 200 ML IV SCH (13:00)
[2019-04-11] MEDS ORDERED: ALBUTEROL SULFATE 2.5 MG/3 ML NEBU. NEB PRN (13:00)
[2019-04-11] MEDS ORDERED: 0.9 % SODIUM CHLORIDE 10 ML DISP.SYRIN. IV PRN (13:00)
--- NOTE | 2019-04-11 13:48 | NUR ---
1300 Lovenox not given due to pt having surgery today. Lovenox retimed for hs.
[2019-04-11 15:00] VITALS: BP 107/60
--- NOTE | 2019-04-11 17:02 | NUR ---
Pt. in tears. States she wants to be discharged tonight. Felix RN overheard pt stating she wanted to go home now so she can smoke and the nicotine patch did not work last night. Pt. stated to this RN that she wants to go home tonight because everyone she knows who stays in the hospital dies. Pt. educated on her surgery and recovery period. Pt. stated she still wants to go home. Dr. Markie metcalf.
--- NOTE | 2019-04-11 17:27 | NUR ---
Dr. Aden returned call, stated he would perfer that pt does not go tonight without a pain med Rx, but if she left to F/u in [address] Mejia paged. Pt. notified if she does leave there is a possibility of not having pain meds available.
--- NOTE | 2019-04-11 17:39 | NUR ---
Dr. Whittaker returned call, notified of pt wanting to go home and urine results. Orders received.
[2019-04-11] MEDS ORDERED: METR70GE14 VG (18:02)
--- NOTE | 2019-04-11 18:25 | NUR ---
Metronidozol vaginal gel 0.75% 1 application x 5 days called to [place] [facility]. Pt. discharged to home, verbalized understanding of discharge instructions. Lap sites x 5 CDI. Pt. states she is fine with not having strong pain meds at discharge.
--- NOTE | 2019-04-13 17:06 | PATHOLOGY ---
[facility] Accession Number: [id number] . 01 Material submitted: . gallbladder - GALLBLADDER . 01 Clinical history: . Cholelithiasis . 02 Diagnosis: Gallbladder, laparoscopic cholecystectomy: - Cholelithiasis. - Chronic cholecystitis with increased eosinophils. (JPM:customer relations specialist; 04/13/2019) MBR/04/13/2019 . 02 Comment: There is no evidence of malignancy. (JPM:customer relations specialist; 04/13/2019) . 02 Electronically signed: . Prince Hsieh MD, Pathologist NPI- [id number] . 01 Gross description: . The specimen is received in formalin, labeled "Angela, Umu, gallbladder", is intact, distended gallbladder measuring 8.0 cm in length and 2.5 cm in maximum diameter with a smooth, glistening and predominantly green serosa. The cystic duct is patent. The gallbladder lumen contains dark green, viscous bile and four yellow bosselated calculi measuring 2.0 x 1.6 x 0.8 cm. The mucosa is dark green with no discrete cholesterolosis. The wall is 0.1 cm in average thickness. Representatively submitted in A1. ([facility]; 04/12/2019) SHS/SHS . 02 Pathologist provided ICD-10: K80.10 . 02 CPT . 926354 Specimen Comment: A courtesy copy of this report has been sent to Specimen Comment: [phone], , . Specimen Comment: Report sent to ,DR RUDD / DR KNOX Performed at: [address], [place], [place] [id number] MD Rosalio Najera MD Phone: [phone] Performed at: [address] [id number] MD Prince Hsieh MD Phone: [phone]
== END 2019-04-11 18:30 | disposition home or self-care (01) | DRG 418 ==
LOC: ER 19:55 → 4 NORTH 22:00
PROVIDERS: ADMIT Family Medicine; ATTEND Family Medicine
PROC: BF101ZZ Fluoroscopy of Bile Ducts using Low Osmolar Contrast (ICD-10-PCS; 2019-04-11)
PROC: 0FT44ZZ Resection of Gallbladder, Percutaneous Endoscopic Approach (ICD-10-PCS; principal; 2019-04-11 10:30)
DX: K80.10 Calculus of gallbladder with chronic cholecystitis without obstruction (principal); N39.0 Urinary tract infection, site not specified; E66.01 Morbid (severe) obesity due to excess calories; F41.9 Anxiety disorder, unspecified; J45.909 Unspecified asthma, uncomplicated; F32.9 Major depressive disorder, single episode, unspecified; I10 Essential (primary) hypertension; F98.8 Other specified behavioral and emotional disorders with onset usually occurring in childhood and adolescence; G40.909 Epilepsy, unspecified, not intractable, without status epilepticus; F17.210 Nicotine dependence, cigarettes, uncomplicated; Z88.0 Allergy status to penicillin; Z68.37 Body mass index [BMI] 37.0-37.9, adult; Z84.89 Family history of other specified conditions
CPT/HCPCS: 36415; 74300; 76705; 80053; 81001; 81025; 83690; 85025; 87086; 88304; A7015; J0744; J0780; J1100; J1885; J1956; J2001; J2060; J2270; J2405; J2704; J2710; J3010; J3490; J7030; J7120; Q9967; G0378

== ENCOUNTER 2019-04-13 23:58 | Emergency (ER) | payer SELFPAY ==
[~2019-04-13] VITALS: Ht 177.8 cm; Wt 100.7 kg
[~2019-04-13 23:58] MED LIST changes: +METR70GE14 VG
[2019-04-14] MEDS ORDERED: IV NORMAL SALINE 1000ML BAG 1,000 ML IV ONE (00:15)
[2019-04-14] MEDS ORDERED: fentaNYL PF VIAL 100 MCG/2 ML VIAL IV ONE (00:15)
[2019-04-14] MEDS ORDERED: ONDANSETRON PF 4 MG/2 ML VIAL. IV ONE (00:15)
[2019-04-14 00:23] LABS: BASO % 0 % (0-3); EOS # 0.3 x10^3/uL (0.0-0.7); EOS % 4 % (0-3); HEMATOCRIT 40.2 % (36.0-47.0); HEMOGLOBIN 13.5 g/dL (12.0-15.5); LYMPH # 2.4 x10^3/uL (1.0-4.8); LYMPH % 27 % (24-48); MEAN CORPUSCULAR HEMOGLOBIN 30 pg (25-35); MEAN CORPUSCULAR HGB CONC 34 g/dL (31-37); MEAN CORPUSCULAR VOLUME 89 fL (79-100); MONO # 0.6 x10^3/uL (0.0-1.1); MONO % 7 % (0-9); NEUT # 5.7 x10^3/uL (1.8-7.7); NEUT % 62 % (31-73); PLATELET COUNT 237 x10^3/uL (140-400); RED BLOOD COUNT 4.51 x10^6/uL (3.50-5.40); RED CELL DISTRIBUTION WIDTH 14.1 % (11.5-14.5); WHITE BLOOD COUNT 9.1 x10^3/uL (4.0-11.0)
[2019-04-14 00:32] LABS: CALCIUM 8.9 mg/dL (8.5-10.1); GFR 69.3; POTASSIUM 3.9 mmol/L (3.5-5.1)
[2019-04-14 00:38] LABS: ALBUMIN 3.6 g/dL (3.4-5.0); TOTAL BILIRUBIN 0.1 mg/dL (0.2-1.0); TOTAL PROTEIN 7.3 g/dL (6.4-8.2)
[2019-04-14 00:50] LABS: BILIRUBIN,URINE NEGATIVE (NEG); CLARITY,URINE CLOUDY; COLOR,URINE YELLOW; NITRITE,URINE NEGATIVE (NEG); PH,URINE 5.5; PROTEIN,URINE NEGATIVE (NEG-TRACE); UROBILINOGEN,URINE 0.2 mg/dL (0.2 mg/dL)
--- NOTE | 2019-04-14 00:53 | PHYS DOC ---
Past Medical History Past Medical History: Anemia, Anxiety, Asthma, Depression, Hypertension, Seizure Past Surgical History: Other Additional Past Surgical Histo: MOUTH AND BACK, RIGHT KNEE Alcohol Use: None Drug Use: None Adult General Chief Complaint Chief Complaint: POST-OP PROBLEM HPI HPI Patient is a 24-year-old female who is 2 days postop from old laparoscopic cholecystectomy. She been doing well since discharge. Tonight after having a bowel movement she felt some pain in her upper abdomen. She had some associated nausea. She has not had any fever chills or sweats. She's been able to tolerate food without much difficulty. She states she has been showering and her wounds have looked good. She states the pain is somewhat better than what it was shortly after the bowel movement tonight. She does state the pain is cramping in nature and does not radiate anywhere and stays in her upper abdomen.[] Review of Systems Review of Systems Constitutional: Denies fever or chills [] Eyes: Denies change in visual acuity, redness, or eye pain [] HENT: Denies nasal congestion or sore throat [] Respiratory: Denies cough or shortness of breath [] Cardiovascular: No additional information not addressed in HPI [] GI: Per history of present illness[] : Denies dysuria or hematuria [] Musculoskeletal: Denies back pain or joint pain [] Integument: Denies rash or skin lesions [] Neurologic: Denies headache, focal weakness or sensory changes [] Endocrine: Denies polyuria or polydipsia [] All other systems were reviewed and found to be within normal limits, except as documented in this note. Current Medications Current Medications Current Medications Medications (Trade) Dose Ordered Sig/Karol Start Time Stop Time Status Last Admin Dose Admin Fentanyl Citrate (Fentanyl 2ml Vial) 50 mcg 1X ONCE 04/14/19 00:15 04/14/19 00:16 DC 04/14/19 00:43 50 MCG Ondansetron HCl (Zofran) 4 mg 1X ONCE 04/14/19 00:15 04/14/19 00:16 DC 04/14/19 00:43 4 MG Sodium Chloride 1,000 ml @ 1,000 mls/hr 1X ONCE 04/14/19 00:15 04/14/19 01:14 04/14/19 00:43 1,000 MLS/HR Allergies Allergies Allergies Coded Allergies Type Severity Reaction Last Updated Verified Penicillins Allergy Severe 04/10/19 Yes Physical Exam Physical Exam Constitutional: Well developed, well nourished, no acute distress, non-toxic appearance. [] HENT: Normocephalic, atraumatic, bilateral external ears normal, oropharynx moist, no oral exudates, nose normal. [] Eyes: PERRLA, EOMI, conjunctiva normal, no discharge. [] Neck: Normal range of motion, no tenderness, supple, no stridor. [] Cardiovascular:Heart rate regular rhythm, no murmur [] Lungs & Thorax: Bilateral breath sounds clear to auscultation [] Abdomen: Bowel sounds normal, soft, no tenderness, no masses, no pulsatile masses. [] Skin: Warm, dry, no erythema, no rash. [] Back: No tenderness, no CVA tenderness. [] Extremities: No tenderness, no cyanosis, no clubbing, ROM intact, no edema. [] Neurologic: Alert and oriented X 3, normal motor function, normal sensory function, no focal deficits noted. [] Psychologic: Affect normal, judgement normal, mood normal. [] Current Patient Data Vital Signs Vital Signs Date Time Temp Pulse Resp B/P (MAP) Pulse Ox O2 Delivery O2 Flow Rate FiO2 04/14/19 00:43 18 96 Room Air 04/14/19 00:07 97.9 89 162/92 (115) 97.9 Lab Values Laboratory Tests Test 04/14/19 00:13 04/14/19 00:20 04/14/19 00:21 White Blood Count 9.1 x10^3/uL (4.0-11.0) Red Blood Count 4.51 x10^6/uL (3.50-5.40) Hemoglobin 13.5 g/dL (12.0-15.5) Hematocrit 40.2 % (36.0-47.0) Mean Corpuscular Volume 89 fL (79-100) Mean Corpuscular Hemoglobin 30 pg (25-35) Mean Corpuscular Hemoglobin Concent 34 g/dL (31-37) Red Cell Distribution Width 14.1 % (11.5-14.5) Platelet Count 237 x10^3/uL (140-400) Neutrophils (%) (Auto) 62 % (31-73) Lymphocytes (%) (Auto) 27 % (24-48) Monocytes (%) (Auto) 7 % (0-9) Eosinophils (%) (Auto) 4 % (0-3) H Basophils (%) (Auto) 0 % (0-3) Neutrophils # (Auto) 5.7 x10^3/uL (1.8-7.7) Lymphocytes # (Auto) 2.4 x10^3/uL (1.0-4.8) Monocytes # (Auto) 0.6 x10^3/uL (0.0-1.1) Eosinophils # (Auto) 0.3 x10^3/uL (0.0-0.7) Basophils # (Auto) 0.0 x10^3/uL (0.0-0.2) Sodium Level 144 mmol/L (136-145) Potassium Level 3.9 mmol/L (3.5-5.1) Chloride Level 107 mmol/L (98-107) Carbon Dioxide Level 26 mmol/L (21-32) Anion Gap 11 (6-14) Blood Urea Nitrogen 12 mg/dL (7-20) Creatinine 1.0 mg/dL (0.6-1.0) Estimated GFR (Cockcroft-Gault) 69.3 BUN/Creatinine Ratio 12 (6-20) Glucose Level 151 mg/dL (70-99) H Calcium Level 8.9 mg/dL (8.5-10.1) Total Bilirubin 0.1 mg/dL (0.2-1.0) L Aspartate Amino Transferase (AST) 13 U/L (15-37) L Alanine Aminotransferase (ALT) 22 U/L (14-59) Alkaline Phosphatase 62 U/L (46-116) Total Protein 7.3 g/dL (6.4-8.2) Albumin 3.6 g/dL (3.4-5.0) Albumin/Globulin Ratio 1.0 (1.0-1.7) Lipase 94 U/L (73-393) Urine Collection Type Unknown Urine Color Yellow Urine Clarity Cloudy Urine pH 5.5 Urine Specific [place] 1.020 Urine Protein Negative mg/dL (NEG-TRACE) Urine Glucose (UA) Negative mg/dL (NEG) Urine Ketones (Stick) Negative mg/dL (NEG) Urine Blood Small (NEG) Urine Nitrite Negative (NEG) Urine Bilirubin Negative (NEG) Urine Urobilinogen Dipstick 0.2 mg/dL (0.2 mg/dL) Urine Leukocyte Esterase Large (NEG) Urine RBC 6-10 /HPF (0-2) Urine WBC Tntc /HPF (0-4) Urine Squamous Epithelial Cells Many /LPF Urine Amorphous Sediment Present /HPF Urine Bacteria Few /HPF (0-FEW) Urine Mucus Marked /LPF Urine Yeast Present /HPF POC Urine HCG, Qualitative Hcg negative (Negative) Laboratory Tests 04/14/19 00:13 Laboratory Tests 04/14/19 00:13 EKG EKG [] Radiology/Procedures Radiology/Procedures [] Course & Med Decision Making Course & Med Decision Making Pertinent Labs and Imaging studies reviewed. (See chart for details) [ED course: Evaluation reveals a 24-year-old female that is a couple days postop laparoscopic cholecystectomy. Her wounds looked terrific. Her abdominal exam is actually very benign. She did not seem to be in any distress here. She was given some IV fluids and pain medicine during her stay here in the emergency department which did she did state that her feel better.] Dragon Disclaimer Dragon Disclaimer This electronic medical record was generated, in whole or in part, using a voice recognition dictation system. Departure Departure Impression: Primary Impression: Postoperative abdominal pain Additional Impression: UTI (urinary tract infection) Disposition: 01 HOME, SELF-CARE Condition: STABLE Referrals: NO PCP (PCP) Patient Instructions: Abdominal Pain, Laparoscopic Cholecystectomy, Care After Additional Instructions: Follow with your surgeon as scheduled. Return to the emergency department with any new or concerning symptoms Scripts Ondansetron Hcl (ZOFRAN) 4 Mg Tablet 1 TAB PO Q8HRS PRN for NAUSEA, #20 TAB Prov: SHELBY FARRELL DO 04/14/19 Sulfamethoxazole/Trimethoprim (BACTRIM DS TABLET) 1 Each Tablet 1 TAB PO BID, #14 TAB Prov: SHELBY FARRELL DO 04/14/19 Problem Qualifiers SHELBY FARRELL DO Apr 14, 2019 00:53
[2019-04-14 00:54] LABS: SQUAMOUS EPITHELIAL CELL,UR MANY /LPF; WBC,URINE TNTC /HPF (0-4)
[2019-04-14 00:55] LABS: BACTERIA,URINE FEW /HPF (0-FEW)
[2019-04-14 00:57] LABS: AMORPHOUS SEDIMENT,UR PRESENT /HPF; YEAST,URINE PRESENT /HPF
[2019-04-14 01:00] VITALS: BP 120/65
[2019-04-14] MEDS ORDERED: SULF1TAB24 PO (01:00)
[2019-04-14] MEDS ORDERED: ONDA4TAB7 PO (01:00)
== END 2019-04-14 01:08 | disposition home or self-care (01) ==
LOC: ER 23:58
DX: G89.18 Other acute postprocedural pain (principal); R10.10 Upper abdominal pain, unspecified; N39.0 Urinary tract infection, site not specified; Z90.49 Acquired absence of other specified parts of digestive tract; J45.909 Unspecified asthma, uncomplicated; I10 Essential (primary) hypertension; Z88.0 Allergy status to penicillin
CPT/HCPCS: 36415; 80053; 81001; 81025; 83690; 85025; 87086; 96374; 96375; 99284; J2405; J3010; J7030

== ENCOUNTER 2019-06-28 22:46 | Emergency (ER) | payer SELFPAY ==
[~2019-06-28] VITALS: Ht 177.8 cm; Wt 100.7 kg
[~2019-06-28 22:46] MED LIST changes: +SULF1TAB24 PO
[2019-06-28 23:00] VITALS: BP 117/65
--- NOTE | 2019-06-29 | PHYS DOC ---
Past Medical History Past Medical History: Anemia, Anxiety, Asthma, Depression, Hypertension, Seizure Additional Past Medical Histor: "low blood sugars" "brain tumors" pcos (DARIUSZ HER APRN) Past Surgical History: Other Additional Past Surgical Histo: MOUTH AND BACK, RIGHT KNEE (DARIUSZ HER APRN) Alcohol Use: None Drug Use: None (DARIUSZ HER APRN) Adult General Chief Complaint Chief Complaint: COUGH HPI HPI Patient is a 24 year old female, accompanied by her significant other, who presents to the emergency Department today with complaints of a cough for the last week. Patient states that the cough is nonproductive. She states that she has had nausea and vomiting after coughing several times throughout the week. She denies any fever, shortness of breath, wheezing, abdominal pain, or diarrhea. Patient states that both of her sides hurt with coughing. She has tried taking [id number] DayQuil and NyQuil with little relief of her symptoms. Patient is still able to smoke cigarettes just not as many cigarettes as she usually does. She currently rates her discomfort a 4 out of 10 on the pain scale. She denies any alleviating factors, the pain increases with coughing. Patient states she has a history of asthma, seizures, anemia, and was told that she had tumors in her brain before but never followed up on it. (DARIUSZ HER APRN) Review of Systems Review of Systems Constitutional: Denies fever or chills [] Eyes: Denies redness, or eye pain [] HENT: Denies nasal congestion or sore throat [] Respiratory: See history of present illness Cardiovascular: No additional information not addressed in HPI [] GI: Denies abdominal pain, or diarrhea; see history of present illness : Denies dysuria or hematuria [] Musculoskeletal: Denies back pain or joint pain [] Integument: Denies rash or skin lesions [] Neurologic: Denies headache Complete systems were reviewed and found to be within normal limits, except as documented in this note. (DARIUSZ HER APRN) Allergies Allergies Allergies Coded Allergies Type Severity Reaction Last Updated Verified Penicillins Allergy Severe 04/10/19 Yes (MARY ELLEN KNOX MD) Physical Exam Physical Exam Constitutional: Well developed, well nourished, no acute distress, non-toxic appearance. [] HENT: Normocephalic, atraumatic, bilateral external ears normal, bilateral TMs normal, posterior pharynx normal, oropharynx moist, no oral exudates, nose normal. [] Eyes: PERRLA, EOMI, conjunctiva normal, no discharge. [] Neck: Normal range of motion, no tenderness, supple, no stridor. [] Cardiovascular:Heart rate regular rhythm, no murmur [] Lungs & Thorax: Bilateral breath sounds clear to auscultation, Respirations even and unlabored, no retractions, no respiratory distress Skin: Warm, dry, no erythema, no rash. [] Back: No tenderness Extremities: No cyanosis, no clubbing, ROM intact, no edema. [] Neurologic: Alert and oriented X 3, no focal deficits noted. [] Psychologic: Affect normal, judgement normal, mood normal. [] (DARIUSZ HER APRN) Current Patient Data Vital Signs Vital Signs Date Time Temp Pulse Resp B/P (MAP) Pulse Ox O2 Delivery O2 Flow Rate FiO2 06/28/19 23:00 98.1 99 22 117/65 (82) 99 Room Air 98.1 (MARY ELLEN KNOX MD) EKG EKG [] (DARIUSZ HER APRN) Radiology/Procedures Radiology/Procedures [] (DARIUSZ HER APRN) Course & Med Decision Making Course & Med Decision Making Pertinent Labs and Imaging studies reviewed. (See chart for details) dx: medical screening exam A medical screening exam was performed, patient was found to have no emergent medical condition. The plan of care would've included prescriptions for an albuterol inhaler, and Tessalon Perles also URI instructions. However, the patient eloped after talking with registration. [] [] (DARIUSZ HER APRN) Course & Med Decision Making Staff Physician Addendum: I was working in the ER during the course of this patient's visit. I was available for consultation as needed, but I was not directly involved in the care of this patient. (MARY ELLEN KNOX MD) Dragon Disclaimer Dragon Disclaimer This electronic medical record was generated, in whole or in part, using a voice recognition dictation system. (DARIUSZ HER APRN) Departure Departure Impression: Primary Impression: Encounter for medical screening examination Disposition: HOME, SELF-CARE (eloped after speaking with registrar) Condition: STABLE Referrals: NO PCP (PCP) DARIUSZ HER APRN Jun 29, 2019 00:00 MARY ELLEN KNOX MD Jun 29, 2019 04:40
== END 2019-06-28 23:24 | disposition home or self-care (01) ==
LOC: ER 22:46
DX: R05 Cough (principal); R11.2 Nausea with vomiting, unspecified; J45.909 Unspecified asthma, uncomplicated; I10 Essential (primary) hypertension; F41.9 Anxiety disorder, unspecified; F32.9 Major depressive disorder, single episode, unspecified; R56.9 Unspecified convulsions
CPT/HCPCS: 99281